=== PATIENT | female | born 1965 | race Caucasian/White ===

== ENCOUNTER 2018-08-15 16:19 | Emergency (ER) | payer MEDICARE ==
[~2018-08-15] VITALS: Ht 157.5 cm; Wt 99.8 kg
--- OUTSIDE RECORDS SUMMARY | 2018-08-15 16:22 | XMS REPORT ---
Author Author [facility] Address Unknown Phone Unavailable Care Team Providers Care Jack Spooler Tender Name Role Phone Hernando WOODALL Unavailable Unavailable Problems This patient has no known problems. Allergies, Adverse Reactions, Alerts This patient has no known allergies or adverse reactions. Medications This patient has no known medications. Results Test Description Test Time Test Comments Text Results Atomic Results Result Comments CHEST SINGLE (NOT PORTABLE) [place] [address] Patient Name: ANEUDY NG MR #: [id number] : 1965 Age/Sex: 52/F Req #: [id number] [facility] Physician: Ordered by: CRUZ WOODALL MD Report #: [id number] Location: ER Room/Bed: Procedure: [id number] DX/CHEST SINGLE (NOT PORTABLE) Exam Date: 05/21/17 Exam Time: 1540 REPORT STATUS: Signed PROCEDURE: A single AP view of the chest. COMPARISON: Chest x-ray 12/02/2016. INDICATIONS: CHEST PAIN FINDINGS: Lines/tubes: None. Lungs: The lungs are hypo-inflated and clear. There is no evidence of pneumonia or pulmonary edema. Pleura: There is no pleural effusion or pneumothorax. Heart and mediastinum: The heart and the mediastinum are unremarkable. Bones: No acute bony abnormality. Right upper quadrant cholecystectomy clips. IMPRESSION: No acute cardiopulmonary disease. Dictated by: Adolph Puga M.D. on 05/21/2017 at 16:02 Electronically approved by: Adolph Puga M.D. on 05/21/2017 at 16:02 Dictated By: ADOLPH PUGA MD 01 Transcribed By: ELOISA on 05/21/171601 COPY TO: CRUZ WOODALL MD
--- NOTE | 2018-08-15 19:18 | Diagnostic Imaging Report ---
EXAMINATION: PA and lateral views of the chest. COMPARISON: None CLINICAL HISTORY: Cough, trouble breathing DISCUSSION: Lines/tubes: None. Lungs: Mildly hypoinflated lungs. No opacities, consolidation or pulmonary edema. Pleura: There is no pleural effusion or pneumothorax. Heart and mediastinum: Mild prominence of the cardiac silhouette, which may be partly due to low lung volumes. Pulmonary vasculature is normal. Bones and soft tissues: No acute bony abnormalities. Degenerative changes in the thoracic spine IMPRESSION: No acute cardiopulmonary abnormalities. Signed by: Dr. Corona Arreaga M.D. on 08/15/2018 7:14 PM
[2018-08-15 21:01] VITALS: BP 160/98
== END 2018-08-15 21:09 | disposition home or self-care (01) ==
LOC: ER 16:19
DX: R05 Cough (principal); J20.9 Acute bronchitis, unspecified; I10 Essential (primary) hypertension; E11.9 Type 2 diabetes mellitus without complications
CPT/HCPCS: 71046; 87400; 99283

== ENCOUNTER → 2022-11-13 | Outpatient (CLI) | payer OTHER | LOC: MAMMO 09:04 | PROVIDERS: ATTEND Internal Medicine | DX: Z12.31 Encounter for screening mammogram for malignant neoplasm of breast (principal); M54.50 Low back pain, unspecified | CPT/HCPCS: 72110; 77067 ==

== ENCOUNTER → 2023-01-03 | Outpatient (CLI) | payer OTHER | LOC: MAMMO 12-06 08:22 | PROVIDERS: ATTEND Internal Medicine | DX: N64.89 Other specified disorders of breast (principal) ==